=== PATIENT | female | born 1990 | race Caucasian/White ===

== ENCOUNTER 2019-03-17 12:31 | Emergency (ER) | payer MEDICAID ==
[~2019-03-17] VITALS: Ht 162.6 cm; Wt 77.1 kg
[~2019-03-17 12:31] MED LIST: NOHOMEMEDICATIONS; PROAIR HFA8.5 GM IH
[2019-03-17 12:35] VITALS: BP 145/100
[2019-03-17] MEDS ORDERED: NAPROSYN500 MG PO (12:59)
[2019-03-17] MEDS ORDERED: CYCLOBENZAPRINE5 MG PO (12:59)
== END 2019-03-17 13:11 | disposition home or self-care (01) ==
LOC: M.ERS 12:31
DX: M54.2 Cervicalgia (principal); J45.909 Unspecified asthma, uncomplicated; Z88.2 Allergy status to sulfonamides